=== PATIENT | male | born 1965 | race Caucasian/White ===

== ENCOUNTER 2018-04-16 09:23 | Outpatient (CLI) | payer MEDICARE, SELFPAY ==
[2018-04-16 11:26] LABS: BUN 18 mg/dL (7-18); CREATININE 1.15 mg/dL (0.70-1.30); Calcium 8.9 mg/dL (8.5-10.1); Chloride 101 mmol/L (98-107); Glucose 90 mg/dL (70-100); Potassium 4.7 mmol/L (3.5-5.1); Sodium 136 mmol/L (136-145)
== END 2018-04-16 09:43 ==
PROVIDERS: PCP Family Medicine; Visit Provider Family Medicine
DX: R25.2 Cramp and spasm (principal)
CPT/HCPCS: 36415; 80048

== ENCOUNTER 2019-02-19 15:03 | Outpatient (CLI) | payer MEDICARE, SELFPAY ==
[2019-02-19 15:39] LABS: HCT 40.3 % (40.0-50.0); HGB 13.6 g/dL (13.5-17.5); Mean Corp. HGB Concentration 33.7 g/dL (32.0-36.0); Mean Corpuscular Hemoglobin 22.3 pg (27.0-33.0); Mean Corpuscular Volume 66.1 fL (80-95); Mean Platelet Volume 9.9 fL (8.0-11.0); Platelet Count 347 x1000/uL (130-400); RBC Distribution Width 17.9 % (11.8-14.1); White Blood Cell Count 14.42 k/cumm (4.4-10.8)
[2019-02-19 16:35] LABS: ALT 30 U/L (16-63); AST 10 U/L (15-37); Albumin 3.8 g/dL (3.4-5.0); Alkaline Phosphatase 80 U/L (46-116); Anion Gap 6.3 mmol/L (3-11); BUN 13 mg/dL (7-18); Bilirubin, Total 0.4 mg/dL (0.2-1.0); CO2 29.7 mmol/L (21.0-32.0); CREATININE 1.19 mg/dL (0.70-1.30); Calcium 9.1 mg/dL (8.5-10.1); Chloride 101 mmol/L (98-107); Glucose 108 mg/dL (70-100); Potassium 4.8 mmol/L (3.5-5.1); Sodium 137 mmol/L (136-145); TSH 1.32 uIU/mL (0.36-3.74); Total Protein 7.4 g/dL (6.4-8.2)
== END 2019-02-19 15:23 ==
PROVIDERS: PCP Family Medicine; Visit Provider Family Medicine
DX: M46.1 Sacroiliitis, not elsewhere classified (principal); R41.0 Disorientation, unspecified; F41.9 Anxiety disorder, unspecified
CPT/HCPCS: 36415; 80053; 85027; 84443

== ENCOUNTER 2020-09-05 13:10 | Outpatient (REF) | payer MEDICARE, SELFPAY ==
[2020-09-05 13:58] LABS: Hemoglobin A1C 5.6 % (<5.7)
[2020-09-05 14:08] LABS: CREATININE 1.1 mg/dL (0.70-1.30); Cholesterol 219 mg/dL (<200); HDL Cholesterol 33 mg/dL (40-60); Potassium 4.1 mmol/L (3.5-5.1); Triglyceride 504 mg/dL (<150)
[2020-09-05 14:21] LABS: LDL CHOLESTEROL 104 mg/dL (<100)
== END 2020-09-05 13:11 | disposition home or self-care (01) ==
LOC: LBN 13:10
PROVIDERS: PCP Nurse Practitioner; Visit Provider Nurse Practitioner
DX: I10 Essential (primary) hypertension (principal); R73.03 Prediabetes
CPT/HCPCS: 80061; 83721; 82565; 83036; 84132

== ENCOUNTER → 2020-10-26 10:19 | Outpatient (BNVA) | payer MEDICARE, SELFPAY | PROVIDERS: PCP Nurse Practitioner; Referring Provider Nurse Practitioner; Visit Provider Physical Therapy Assistant | DX: Z12.11 Encounter for screening for malignant neoplasm of colon (principal); I10 Essential (primary) hypertension ==

== ENCOUNTER 2020-10-30 03:07 | Outpatient (CLI) | payer MEDICARE, SELFPAY ==
[2020-10-30 11:39] LABS: Source Nasal/Nares
[2020-10-30 16:43] LABS: COVID-19 PCR Negative (Negative)
== END 2020-10-30 03:08 | disposition home or self-care (01) ==
LOC: LBO 03:07
PROVIDERS: PCP Nurse Practitioner; Visit Provider Surgery
DX: Z20.822 Contact with and (suspected) exposure to COVID-19 (principal); Z01.818 Encounter for other preprocedural examination
CPT/HCPCS: 87635

== ENCOUNTER 2020-11-01 09:06 | Day surgery (SDC) | payer MEDICARE, SELFPAY ==
--- NOTE | 2020-11-01 06:51 | W.COLOREPORT ---
Date of service: 11/01/20 Time of Service: 10:47 Colonoscopy Report Date of procedure: 11/01/20 Pre-op diagnosis general: Colon Cancer Screening Post-op diagnosis procedure note: other (Diverticulosis and polyps) Procedure: Colonoscopy with polypectomy Surgeon: Chiqui Shelley Anesthesia Type: General:No Airway (ASA 2/ Adriana Ford CRNA) Estimated blood loss (mL): 3 Pathology: other (cecal polyp, sigmoid polyps x2, rectal polyp) Complications: None Disposition: same day Indications: The patient is here for Colonoscopy pre-op. He has no family history of colon cancer. He has not had any bowel habit changes. -Discussed colonoscopy bowel prep as well as the procedure. Discussed possible complications of the procedure to include bleeding, pain, perforation, missed small lesion/polyp, sore throat, aspiration and adverse reaction to the medications. Questions were answered to patient?s satisfaction. No guarantees were implied or given.? Prep: Miralax/Dulcolax Procedure Start Time: :47 Procedure End Time: 11:20 Retraction Time: 18 minutes Findings: Alonso-diverticulosis small polyps Procedure Description: After informed consent was obtained the patient was taken to the procedure room and placed in a left decubitous position. Monitors were applied and a time out was done. The patients name, date of , procedure, allergies to medications and metal in their body was reviewed. The patient was then sedated. Once sedated and comfortable a rectal exam was done. External exam was normal. Internal exam revealed a normal sphincter tone and no palpable masses. The prostate felt smooth. The scope was then introduced and retro-flexed. No internal hemorrhoids, polyps or masses were identified on retro-flexion. The scope was then advanced to the cecum without difficulty. The ileocecal vlave and appendiceal orifice were identified. The prep was good. The scope was then slowly retracted over 18 minutes back into the rectum. Polyps were removed with cold forceps in the cecum, sigmoid x2 and rectum. There was alonso-diverticulosis noted. The scope was removed and the patient was woken up and taken back to Same day surgery in stable condition. The patient tolerated the procedure well and there were no immediate complications. Follow up: The patient should follow up in 5 years unless they develop changes in bowel habits or other new gastrointestinal complaints.
--- NOTE | 2020-11-01 06:53 | W.PM.DSUDISC ---
Discharge Plan Disposition Patient Disposition: HOME Condition: Good Discharge Details Reason For Visit: Colonoscopy Attending Provider: Chiqui Shelley Primary Care Provider: Yamilex Maldonado Home Meds and New Rx's Prescriptions: Continued hydrochlorothiazide 25 mg tablet 25 mg PO DAILY Qty: 90 RF: 4 methylphenidate HCl 20 mg tablet 20 mg PO BID MDD 40 mg Qty: 56 RF: 0 lisinopril 30 mg tablet 30 mg PO DAILY Qty: 90 RF: 4 aspirin [Aspir-Low] 81 MG tablet,delayed release (DR/EC) 2 cap PO DAILY Qty: 180 RF: 4 marijuna 0 DAILY RF: 0 paroxetine HCl 20 mg tablet 20 mg PO DAILY Qty: 90 RF: 4 cyclobenzaprine 10 mg tablet 10 mg PO HS PRN (Reason: muscle spasm) Qty: 90 RF: 4 doxazosin 2 mg tablet See Rx Instructions PO HS Qty: 180 RF: 4 ibuprofen 200 mg Tablet RF: 0 Discontinued bisacodyl [Dulcolax (bisacodyl)] 5 mg tablet,delayed release (DR/EC) 5 mg PO ONCE Qty: 4 RF: 0 polyethylene glycol 3350 17 gram/dose powder 17 g PO ONCE Qty: 238 RF: 0 Discharge Instructions Instructions: Diverticulosis (DC), Colorectal Polyps (DC) Additional Instructions: Findings: Diverticulosis small polyps Follow up: 5 years Please call if you develop: fevers >101.5 Nausea or Vomiting Abdominal pain that is not transient Rectal bleeding that is more then a tbsp A hard abdomen and inability to pass gas DAY SURGERY UNIT POST ENDOSCOPY INSTRUCTIONS Instructions for everyone who is given Anesthesia: For your safety, please do the following for the next 24 Hours: a. Do not drive or operate dangerous equipment b. Do not drink alcohol beverages or use any recreational drugs for the first 24 hours or while taking pain medications. The medications in your body may have a reaction that can be dangerous. c. Do not make any important decisions or sign any important papers 1. Generally there are no restrictions on your activity after a day or so has gone by, but you may feel a bit fatigued for a few days. 2. After you arrive home you may have a light meal and return to a normal diet as you can tolerate it without feeling sick to your stomach. 3. After surgery, you may feel pain or discomfort. This should be only transient, but if it persists please contact your doctor. 4. If there are any questions regarding the findings of your procedure, please feel free to contact your doctor. 6. If you are unable to contact your doctor with a problem, contact the hospital at [phone]. 7. Continue all your regular medications unless directed otherwise. I understand the above instructions and have no questions. Signature of Patient or Responsible Adult Escort Date/Time Name of Responsible Adult Escort Signature of Nurse Date/Time Activity:: Activity as Tolerated Diet:: HIgh fiber diet Discharge Orders Discharge Orders: Discharge Order (Routine); Ordered 11/01/20 Ordered By: Chiqui Shelley
[2020-11-01 09:32] VITALS: BP 148/105; PULSE 78; RESP 16; TEMP 36.6; O2SAT 98
--- NOTE | 2020-11-01 09:44 | W.ANESPRE ---
General Info Date of Service Date Performed: 11/01/20 Height: 6 ft 1 in Weight: 84.4 kg Body Mass Index (BMI): 24.5 Surgical Procedure: Operation Date: 11/01/20 10:50 Proposed Procedures Side Surgeon p Colonoscopy Chiqui Shelley MD Meds Allergies and Home Medications Allergies Allergy/AdvReac Type Severity Reaction Status Date / Time gabapentin AdvReac GI UPSET Unverified 11/01/20 09:36 Home Medication Medication Instructions Recorded aspirin [Aspir-Low] 2 cap PO DAILY #180 tab 05/14/17 hydrochlorothiazide 25 mg tablet 25 mg PO DAILY #90 tab-cap 11/24/18 paroxetine HCl 20 mg tablet 20 mg PO DAILY #90 tab-cap 11/03/19 cyclobenzaprine 10 mg tablet 10 mg PO HS PRN #90 tab-cap 01/27/20 doxazosin 2 mg tablet See Rx Instructions PO HS #180 05/08/20 tab-cap lisinopril 30 mg tablet 30 mg PO DAILY #90 tab-cap 06/06/20 methylphenidate HCl 20 mg tablet 20 mg PO BID #56 tab-cap MDD 40 mg 09/05/20 bisacodyl 5 mg tablet,delayed 5 mg PO ONCE #4 tab 10/27/20 release polyethylene glycol 3350 17 17 g PO ONCE #238 g 10/27/20 gram/dose oral powder ibuprofen 11/01/20 Current Visit Medications: Current Medications Generic Name Dose Route Start Last Admin Trade Name Freq PRN Reason Stop Dose Admin Hyoscyamine Sulfate 0.125 mg 11/01/20 06:53 Hyoscyamine 0.125 Mg Sl/Oral/Chew SL DIRECTED PRN Ringer's Solution 1,000 mls @ 80 mls/hr 11/01/20 06:00 IV 11/30/20 23:59 INFUSION BEN IV Miscellaneous Supplies 1 each 11/01/20 06:00 Iv Access IV 11/30/20 23:59 DIRECTED BEN Ondansetron HCl 4 mg 11/01/20 06:53 Ondansetron 4 Mg/2 Ml Vial IVP Q4H PRN PRN Nausea / Vomiting Sodium Chloride 0 ml 11/01/20 06:00 Normal Saline Flush 10 Ml Syr IV 11/30/20 23:59 PRN PRN Sodium Chloride 0 ml 11/01/20 06:00 Normal Saline 10 Ml Vial IJ 11/30/20 23:59 DIRECTED PRN Sterile Water 0 ml 11/01/20 06:00 Water,Injection,Sterile 10 Ml Vial IJ 11/30/20 23:59 DIRECTED PRN PFSH Active Problems Active Problems: Problem Status Onset Code 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 Anxiety 07/16/16 F41.9 BPH w urinary obs/LUTS 10/16/17 N40.1, N13.8 Essential hypertension 04/26/13 I10 Hyperlipidemia E78.5 Raynaud's phenomenon without gangrene 01/16/17 I73.00 Sacroiliitis 04/02/16 M46.1 ADHD F90.9 Hypertriglyceridemia E78.1 Medical History Medical History (Updated 11/01/20 @ 09:44 by Yolanda West) Acute pericarditis (05/15/80) History of high blood pressure Hx of low back pain Surgical History Surgical History (Updated 11/01/20 @ 09:43 by Yolanda West) History of arthroscopy of left shoulder Tobacco Smoking/Tobacco Use Status: Current every day Tobacco Type: cigarettes Alcohol Alcohol Intake: current Alcohol intake frequency: a few times a month Alcohol type: beer Counseling given: Yes Substance Use Substance use: Never Substance use type: marijuana Vital Signs and Lab Results Vital Signs Most Recent Vital Signs in EMR: Most Recent Vital Signs Temp Pulse Resp BP Pulse Ox 36.6 C 78 16 148/105 H 98 11/01/20 09:32 11/01/20 09:32 11/01/20 09:32 11/01/20 09:32 11/01/20 09:32 Lab Results Blood Type / Crossmatch: No Data to Display Complete Blood Count: No Data to Display Complete Metabolic Panel: No Data to Display Liver Function Panel: No Data to Display Coagulation Panel: No Data to Display Cardiac Panel: No Data to Display Arterial Blood Gas: No Data to Display Venous Blood Gas: No Data to Display Pancreas Panel: No Data to Display Thyroid Panel: No Data to Display Infectious Disease: Coronavirus (COVID-19)(PCR) Negative (Negative) 10/30/20 08:38 10/30/20 Coronavirus 2019 Source Nasal/nares 10/30/20 08:38 10/30/20 Blood Cultures: No Data to Display Toxicology Panel: No Data to Display Imaging and Studies Imaging and Studies Stress Test Summary: 07/17/16 Impressions: Normal stress test after maximal exercise. Summary: 1. Stress ECG conclusions: The stress ECG is negative. Sotomayor treadmill score: 11. This score predicts a low risk of cardiac events. 2. Stress: There is a normal resting blood pressure with an appropriate response to stress. The patient experienced no chest pain during stress. Exercise capacity is above normal for age. Echocardiogram Summary: 05/02/16 STUDY CONCLUSIONS* Summary: 1. Left ventricle: The cavity size was normal. Wall thickness was increased in a pattern of mild LVH. There was mild focal basal hypertrophy of the septum. Systolic function was normal. The estimated ejection fraction was 55-60%. Wall motion was normal; there were no regional wall motion abnormalities. 2. Mitral valve: There was mild regurgitation. 3. Right ventricle: The cavity size was at the upper limits of normal. Wall thickness was normal. Systolic function was normal. 4. Atrial septum: There appears to be a small patent foramen ovale. Doppler showed a very small [id number] atrial level shunt, in the baseline state. 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 Anesthesia Assessment and Plan Anesthesia History Personal History: No History of Anesthesia Complications Family History: No Family History of Anesthesia Complications Exercise Tolerance Exercise Tolerance: Metabolic Equivalents>4 Pertinent Negatives Pertinent Negatives: No Symptoms of GERD, No Major Cardiovascular Symptoms or Complaints and No Major Pulmonary Symptoms or Complaints Cardiac & Pulmonary Exam Cardiac Exam: Normal S1/S2 Heart Sounds Pulmonary Exam: Clear Bilateral Breath Sounds Airway Exam Known Difficult Airway: No Mallampati Class: 2 Mouth Opening: Normal (> 3cm) Thyromental Distance: Greater than 3 cm Neck Range of Motion: Full ROM Neck Circumference: Normal Teeth Condition: Normal Dentition ASA Classification ASA Score: ASA 2 Emergency Case?: No NPO Status NPO Status: NPO Clears >2 hours, Solids >8 hours Anesthesia Plan Resuscitation Status: Full Code Anesthesia Technique: General Anesthesia Airway Planned: Natural Airway Monitors Used: Standard Monitors
[2020-11-01] MEDS: Lactated Ringers 1,000 ML 80 ML IV (10:00)
[2020-11-01 10:32] VITALS: BMI 24.5
--- NOTE | 2020-11-01 11:03 | BOWEL_PTH ---
PATIENT: Jong Peña LOC: [facility] U#:[id number] AGE/SX: 55/M ROOM: RE11/01/[address]: Chiqui Shelley MD : 1965 BED: DIS: 11/01/2020 SPEC #: [id number] RECD: 11/01/20 12:49 STATUS: LETTY REQ #: [id number] CATHIE: 11/01/20 11:[address]: Chiqui Shelley DEPT: Surgical Specimen RECD BY: Maria Esther Headley ENTERED: 11/01/20 12:51 SP TYPE: Bowel OTHR DR: Yamilex Maldonado, PhD [employer] Tissues: 1 - BIOPSY BOWEL 2 - BIOPSY BOWEL 3 - BIOPSY BOWEL Procedures: GROSS AND MICRO LEVEL 4 Comments: [id number]
[2020-11-01 11:28] VITALS: BP 130/85; PULSE 77; RESP 16; TEMP 36.2; O2SAT 98
--- NOTE | 2020-11-01 11:36 | W.ANESPOSTOP ---
Postoperative Evaluation Date, Time and Location Date Performed: 11/01/20 Time Performed: 11:36 Patient Location: Day Surgery Unit Vital Signs Most Recent Imported Vital Signs: Most Recent Vital Signs Temp Pulse Resp BP Pulse Ox 36.6 C 78 16 148/105 H 98 11/01/20 09:32 11/01/20 09:32 11/01/20 09:32 11/01/20 09:32 11/01/20 09:32 Most Recent Manually Entered Vital Signs: Adult Blood Pressure: 130/85 Heart Rate: 78 Respirations: 16 Oxygen Saturation (%): 98 Temperature (C): 36.2 C Pain Score (0-10 Scale): 0 Pain Score Most Recent Pain Score: Most Recent Pain Score Pain Level 0 11/01/20 09:32 Assessment Mental Status: Arousable with meaningful communication Airway and Respiratory Function: Patent airway with normal (patient baseline) respiratory exam Cardiovascular Function: Hemodynamically Stable Hydration Status: Adequately Hydrated Nausea & Vomiting: No Nausea or Vomiting Pain: Pt. Denies Any Pain Peripheral Nerve Block: Patient did not receive a nerve block
[2020-11-01 11:37] VITALS: BP 130/85; PULSE 78; RESP 16; TEMPC 36.2; O2SAT 98
[2020-11-01 11:55] VITALS: BP 145/93; PULSE 66; RESP 16; TEMP 35.9; O2SAT 100
== END 2020-11-01 12:35 | disposition home or self-care (01) ==
LOC: SUR 09:06
PROVIDERS: PCP Nurse Practitioner; Visit Provider Surgery
PROC: 0DJD8ZZ Inspection of Lower Intestinal Tract, Via Natural or Artificial Opening Endoscopic (ICD-10-PCS; CPT 45378; principal; 2020-11-01 10:45)
DX: Z12.11 Encounter for screening for malignant neoplasm of colon (principal); D12.0 Benign neoplasm of cecum; K62.1 Rectal polyp; K57.30 Diverticulosis of large intestine without perforation or abscess without bleeding
CPT/HCPCS: 45380; 88305; J2001

== ENCOUNTER 2021-02-22 18:04 | Outpatient (REF) | payer MEDICARE, SELFPAY ==
[2021-02-22 20:50] LABS: CREATININE 1.3 mg/dL (0.70-1.30); Calculated LDL 102 mg/dL (<100); Cholesterol 221 mg/dL (<200); HDL Cholesterol 48 mg/dL (40-60); Triglyceride 358 mg/dL (<150)
== END 2021-02-22 18:05 | disposition home or self-care (01) ==
LOC: NCHCN 18:04
PROVIDERS: PCP Nurse Practitioner; Visit Provider Nurse Practitioner
DX: I10 Essential (primary) hypertension (principal); E78.1 Pure hyperglyceridemia
CPT/HCPCS: 80061; 82565; 84132

== ENCOUNTER 2021-05-18 17:59 | Outpatient (REF) | payer MEDICARE, SELFPAY ==
[2021-05-18 18:37] LABS: *AMPHETAMINES SCREEN URINE Negative (Negative); *BARBITURATES SCREEN URINE Negative (Negative); *BENZODIAZEPINES SCREEN URINE Negative (Negative); Cannabinoids THC Positive (Negative); Cocaine Screen,Urine Negative (Negative); METHADONE URINE SCREEN Negative (Negative); OPIATES URINE SCREEN Negative (Negative)
[2021-05-18 18:38] LABS: Tricyclic Antidepressants Negative (Negative)
== END 2021-05-18 18:00 | disposition home or self-care (01) ==
LOC: LBN 17:59
PROVIDERS: PCP Nurse Practitioner; Visit Provider Nurse Practitioner
DX: Z51.81 Encounter for therapeutic drug level monitoring (principal)
CPT/HCPCS: 80307

== ENCOUNTER 2021-09-13 17:58 | Outpatient (REF) | payer MEDICARE, SELFPAY ==
[2021-09-13 18:27] LABS: *AMPHETAMINES SCREEN URINE Negative (Negative); *BARBITURATES SCREEN URINE Negative (Negative); *BENZODIAZEPINES SCREEN URINE Negative (Negative); Cannabinoids THC Positive (Negative); Cocaine Screen,Urine Negative (Negative); METHADONE URINE SCREEN Negative (Negative); OPIATES URINE SCREEN Negative (Negative)
[2021-09-13 18:30] LABS: Tricyclic Antidepressants Negative (Negative)
== END 2021-09-13 17:59 | disposition home or self-care (01) ==
LOC: LBN 17:58
PROVIDERS: PCP Nurse Practitioner; Visit Provider Nurse Practitioner
DX: Z91.89 Other specified personal risk factors, not elsewhere classified (principal); Z79.899 Other long term (current) drug therapy
CPT/HCPCS: 80307

== ENCOUNTER 2021-12-11 02:09 | Outpatient (CLI) | payer MEDICARE, SELFPAY ==
--- NOTE | 2021-12-11 06:45 | DI.MRI_ITS ---
Exam(s) MR LUMBAR SPINE WO EXAM: MR LUMBAR SPINE WO CLINICAL HISTORY: pain clinic referral, PT with no symptom improvement,sacroilitis,m46.1. TECHNIQUE: Multiplanar multisequence MRI of the Lumbar spine was performed. COMPARISON: MR MRI - LUMBAR SPINE WO CONTRAST from 07/14/2008 CT RENAL COLIC WO CONTRAST from 06/18/2011 CR RT HIP COMPLETE AP PELVIS from 10/11/2016 FINDINGS: Bones: The last intervertebral disc space is designated the L5/S1 level for the numbering purpose of this examination. The vertebral body heights are well maintained. There is partial lumbarization o f S1. Alignment is satisfactory. Mild degenerative endplate signal changes are seen at L3-4, L4-L5 an d L5-S1. Cord: The conus tip ends at the L1 level. It is of normal size and signal intensity. T12-L1: No disc herniations or bulges are present. No central spinal canal or neural foraminal stenos is. L1-2: No disc herniations or bulges are present. No central spinal canal or neural foraminal stenosis . L2-3: No disc herniations or bulges are present. No central spinal canal or neural foraminal stenosis . L3-4: There is a mild diffuse disc bulge. No central spinal canal or neural foraminal stenosis. L4-5: There is a stable mild diffuse disc bulge. Mild degenerative changes of the facets are seen. No significant central spinal canal stenosis is present. There is mild narrowing of the left neural foramen. No significant right neural foraminal stenosis is present. L5-S1: There is a stable diffuse disc bulge which is slightly eccentric to the right. Facet arthropa thy is present. No significant central spinal canal stenosis is present. There is compression of th e right S1 nerve root.No significant neural foraminal stenosis is present. Soft tissues: The visualized SI joints and sacrum are well maintained. There is no change in the aye earance of the lesion in the right iliac bone which correspond to the sclerotic focus seen on the CT scan from 06/18/2011. The paraspinal soft tissues are unremarkable. Visualized abdominal organs: Unremarkable. IMPRESSION: 1. Multilevel degenerative changes in the lumbar spine. 2. Diffuse disc bulge at L5-S1 eccentric to the right causing right lateral recess stenosis and compr essing the right S1 nerve root. DATA REPOSITORY:
== END 2021-12-11 02:29 ==
LOC: DI 02:09
PROVIDERS: PCP Nurse Practitioner; Visit Provider Nurse Practitioner
DX: M46.1 Sacroiliitis, not elsewhere classified (principal); M51.37 Other intervertebral disc degeneration, lumbosacral region; M51.17 Intervertebral disc disorders with radiculopathy, lumbosacral region
CPT/HCPCS: 72148

== ENCOUNTER 2022-01-16 07:54 | Outpatient (CLI) | payer MEDICARE, SELFPAY ==
--- NOTE | 2022-01-16 07:45 | RT.EKG_ITS ---
APPROVED REPORT Exam: Resting ECG Reason for Exam: pre-op examination Patient Location: O HR:78 bpm ECG Measurements Heart Rate 78 AXIS OK 144 P 18 QRSd 99 QRS 21 QT 386 T 34 QTc 440 Conclusion Sinus rhythm...normal P axis, V-rate 60- 99 Normal Electrocardiogram
== END 2022-01-16 07:55 | disposition home or self-care (01) ==
LOC: DI.CM 07:56
PROVIDERS: PCP Nurse Practitioner; Visit Provider Nurse Practitioner Family
DX: Z01.818 Encounter for other preprocedural examination (principal)
CPT/HCPCS: 93010

== ENCOUNTER 2022-01-18 14:56 | Outpatient (CLI) | payer MEDICARE, SELFPAY ==
[2022-01-18 15:09] LABS: HCT 40.6 % (40.0-50.0); HGB 12.9 g/dL (13.5-17.5); MCH 22.2 pg (27.0-33.0); MCHC 31.8 % (32.0-36.0); MCV 70 fL (80-95); MPV 9.3 fL (8.0-11.0); Platelet Count 289 10^3/uL (130-400); RBC 5.82 10^6/uL (4.36-5.78); RDW 14.9 % (11.8-14.1); RDW-SD 36.1 fL; WBC 11.61 10^3/uL (4.4-10.8)
[2022-01-18 15:26] LABS: ALT 35 U/L (16-63); AST 26 U/L (15-37); Albumin 3.5 g/dL (3.4-5.0); Alkaline Phosphatase 118 U/L (46-116); Anion Gap 5.7 mmol/L (3-11); BUN 12 mg/dL (7-18); Bilirubin, Total 0.7 mg/dL (0.2-1.0); CO2 29.3 mmol/L (21.0-32.0); CREATININE 1.2 mg/dL (0.70-1.30); Calcium 9.3 mg/dL (8.5-10.1); Chloride 97 mmol/L (98-107); Glucose 98 mg/dL (74-106); Potassium 4.2 mmol/L (3.5-5.1); Sodium 132 mmol/L (136-145)
== END 2022-01-18 14:57 | disposition home or self-care (01) ==
LOC: LBO 14:57
PROVIDERS: PCP Nurse Practitioner; Visit Provider Nurse Practitioner Family
DX: Z01.818 Encounter for other preprocedural examination (principal)
CPT/HCPCS: 36415; 80053; 85027; 85007

== ENCOUNTER 2022-04-04 04:01 | Outpatient (CLI) | payer MEDICARE, SELFPAY ==
[2022-04-04 12:36] LABS: Abs Immature Grans 0.03 10^3/uL (0.0-0.06); Absolute Basophil Count 0.07 10^3/uL (0.0-0.2); Absolute Eosinophil Count 0.28 10^3/uL (0.0-0.7); Absolute Neutrophil Count 6.11 10^3/uL (1.2-6.7); Basophils % 0.7; Eosinophils % 2.7; HCT 38.4 % (40.0-50.0); HGB 12.1 g/dL (13.5-17.5); Immature Grans % 0.3; Lymphocytes % 25.3; MCHC 31.5 % (32.0-36.0); MCV 73 fL (80-95); MPV 9.9 fL (8.0-11.0); Monocytes % 11.7; Neutrophils % 59.3; Platelet Count 315 10^3/uL (130-400); RBC 5.25 10^6/uL (4.36-5.78); RDW 14.8 % (11.8-14.1); RDW-SD 38.9 fL; WBC 10.29 10^3/uL (4.4-10.8)
[2022-04-04 13:00] LABS: ALT 45 U/L (16-63); AST 25 U/L (15-37); Albumin 3.4 g/dL (3.4-5.0); Alkaline Phosphatase 109 U/L (46-116); Anion Gap 8.6 mmol/L (3-11); BUN 13 mg/dL (7-18); Bilirubin, Total 0.3 mg/dL (0.2-1.0); CO2 28.4 mmol/L (21.0-32.0); CREATININE 1.2 mg/dL (0.70-1.30); Calcium 9.2 mg/dL (8.5-10.1); Chloride 101 mmol/L (98-107); Ferritin 216 ng/mL (26-388); Glucose 102 mg/dL (74-106); Potassium 4.4 mmol/L (3.5-5.1); Sodium 138 mmol/L (136-145); Total Protein 7.6 g/dL (6.4-8.2)
[2022-04-04 14:23] LABS: Iron 20 ug/dL (65-175)
== END 2022-04-04 04:02 | disposition home or self-care (01) ==
LOC: LOS 04:01
PROVIDERS: PCP Nurse Practitioner; Visit Provider Nurse Practitioner Family
DX: D50.9 Iron deficiency anemia, unspecified (principal); F10.21 Alcohol dependence, in remission; D72.829 Elevated white blood cell count, unspecified
CPT/HCPCS: 36415; 80053; 82728; 83540; 85025

== ENCOUNTER 2022-09-29 10:21 | Emergency (ER) | payer MEDICARE, SELFPAY ==
--- NOTE | 2022-09-29 10:15 | RT.EKG_ITS ---
APPROVED REPORT Exam: Resting ECG Reason for Exam: Dizziness Patient Location: E HR:85 bpm ECG Measurements Heart Rate 85 AXIS OK 126 P -16 QRSd 89 QRS 16 QT 364 T [id number] QTc 434 Conclusion Sinus rhythm...normal P axis, V-rate 60- 99 Nonspecific repol abnormality, lateral leads...ST dep, T neg, I aVL V5 V6
[2022-09-29 10:24] VITALS: PULSE 105; RESP 18; TEMP 37.1; O2SAT 99
[2022-09-29 10:25] VITALS: O2SAT 99
[2022-09-29 10:26] VITALS: BP 105/73; PULSE 94
[2022-09-29 10:27] VITALS: BP 105/73
[2022-09-29 10:30] VITALS: RESP 16
--- NOTE | 2022-09-29 10:34 | ED.GENADUL_ITS ---
Discharge Plan Disposition Patient Disposition: Home Discharge Details Clinical Impression: Acute dehydration Primary Care Provider: Brayan Infante ED Provider: Carlos Moe Home Meds and New Rx's Prescriptions: Continued doxazosin 2 mg tablet See Rx Instructions PO HS Qty: 180 4RF Dose Instruction: 1-2 tabs PO HS; Rx Instructions: 1-2 tabs PO HS; cyclobenzaprine 10 mg tablet 10 mg PO HS PRN (Reason: muscle spasm) Qty: 90 4RF Rx Instructions: For muscle spasm hydrochlorothiazide 25 mg tablet 25 mg PO DAILY Qty: 90 3RF Rx Instructions: Replaces 12.5 mg lisinopril 40 mg tablet 40 mg PO DAILY Qty: 90 3RF paroxetine HCl 20 mg tablet 20 mg PO DAILY Qty: 90 4RF aspirin [Aspir-Low] 81 MG tablet,delayed release (DR/EC) 2 cap PO DAILY Qty: 180 4RF marijuna 0 DAILY 0RF naltrexone microspheres 380 mg suspension,extended rel recon 380 mg IM QMONTH Qty: 1 5RF ibuprofen 200 mg Tablet 200 mg PO PRN PRN No Action atorvastatin 40 mg tablet 40 mg PO QPM Qty: 90 3RF Patient Comments: no taking Discharge Instructions Instructions: Dehydration (ED) Additional Instructions: Please continue to orally hydrate and if you develop new or significant worsening of symptoms feel free to return the emergency department for reassessment. Otherwise follow-up with your primary care provider as needed for recheck of any of your abnormal labs. Referrals: Brayan Infante, [employer]AFF [employer] [Primary Care Provider] - Discharge Data Discharge Date/Time-TO BE ENTERED AT DEPARTURE: 09/29/22 13:49 Medical Decision Making Patient presenting to the emergency department for chief complaint of dizziness and fall yesterday evening. 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 Yesterday evening he went to a friend's house and attempted to open the fridge and fell backwards. He had a difficult time getting up. He states some continued dizziness from last night. Denies any head injury, loss of consciousness, nausea vomiting pain or discomfort. Patient's main complaint is some rapid heart rate and mild but continued dizziness in comparison to last night. Physical exam is unremarkable and shows no obvious focal neurological findings, no weakness, beyond tachycardia normal cardiac and respiratory exam. We will plan on checking EKG, and labs. Do feel that we can hold off on any advanced imaging. Of note patient does have a history of alcoholism and while it is stated in remission I question if this may have been a factor to patient's complaint. Reviewed patient's labs and patient does have elevated elevated WBCs with signs of anemia, CMP reviewed and patient has BUN of 26, creatinine of 1.8 with a GFR of 43. Patient's baseline from review of previous ones is greater than 60. Patient does have an elevated bilirubin and a low sodium and chloride with an elevated anion gap. Initial troponin is negative. I suspect significant dehydration given that he was in the sun all day yesterday and reports not hydrating well. We will give him an additional bag of fluids and recheck patient's BMP and CBC after results. Review of repeat CBC shows no significant change. Anemia did slightly increase which was expected but this seems to be near patient's baseline now compared to previous results. CMP shows marked improvement with BUN/creatinine and sodium. Reassessed patient and patient states significant improvement of symptoms. Patient requesting discharge to further hydrate at home which I feel is reasonable. After discussion of diagnosis and plan of care patient has no further needs, questions , or concerns and states clear understanding to return to the emergency department for any worsening symptoms. This documentation was generated using [employer] dictation system, please disregard any oddities of phrase or misspellings. Lab Data Lab results reviewed: Yes I reviewed the patient's lab results. HPI General Mode of arrival: ambulatory . Date/Time Provider Initiated Documentation: 09/29/22 10:22 . Limitations to Documentation: no limitations . Information obtained by: patient and RN notes reviewed . History of Present Illness 57 year old M presents to the emergency department with the chief complaint of Dizziness, syncope, described as moderate, Quality is described as other (Denies pain or discomfort), Patient started experiencing this day(s) (1) and it has been constant. No relieving factors improve symptom(s), Other factors that worsen symptoms (Heat exposure) . Patient notes no other symptoms.. Patient did receive the following treatments prior to arrival, none Related Data Home Medications Medication Instructions Recorded Confirmed aspirin 81 mg tablet,delayed 2 cap PO DAILY #180 tabs 05/14/17 09/29/22 release (Aspir-Low) ibuprofen 200 mg tablet 200 mg PO PRN PRN 11/01/20 09/29/22 doxazosin 2 mg tablet See Rx Instructions PO HS #180 05/18/21 09/29/22 tab-caps atorvastatin 40 mg tablet 40 mg PO QPM #90 tabs 03/27/22 05/02/22 cyclobenzaprine 10 mg tablet 10 mg PO HS PRN muscle spasm #90 03/29/22 09/29/22 tab-caps hydrochlorothiazide 25 mg tablet 25 mg PO DAILY #90 tab-caps 03/29/22 09/29/22 lisinopril 40 mg tablet 40 mg PO DAILY #90 tabs 03/29/22 09/29/22 paroxetine HCl 20 mg tablet 20 mg PO DAILY #90 tab-caps 03/29/22 09/29/22 naltrexone microspheres 380 mg 380 mg IM QMONTH #1 ea 05/02/22 intramuscular suspension,extended release Previous Rx's Medication Instructions Recorded aspirin 81 mg tablet,delayed 2 cap PO DAILY #180 tabs 05/14/17 release (Aspir-Low) doxazosin 2 mg tablet See Rx Instructions PO HS #180 05/18/21 tab-caps atorvastatin 40 mg tablet 40 mg PO QPM #90 tabs 03/27/22 cyclobenzaprine 10 mg tablet 10 mg PO HS PRN muscle spasm #90 03/29/22 tab-caps hydrochlorothiazide 25 mg tablet 25 mg PO DAILY #90 tab-caps 03/29/22 lisinopril 40 mg tablet 40 mg PO DAILY #90 tabs 03/29/22 paroxetine HCl 20 mg tablet 20 mg PO DAILY #90 tab-caps 03/29/22 naltrexone microspheres 380 mg 380 mg IM QMONTH #1 ea 05/02/22 intramuscular suspension,extended release Allergies Allergy/AdvReac Type Severity Reaction Status Date / Time gabapentin AdvReac GI UPSET Unverified 09/29/22 10:28 General Stated Complaint: Dizzy/Sync HERBERT: 3 Review of Systems Constitutional Constitutional: Denies chills, Denies fatigue, Denies fever(s), Denies headache(s), Denies malaise and Denies poor appetite ENT Ears, Nose, Mouth, and Throat: Denies vertigo, Reports dizziness and Denies headache(s) Cardiovascular Cardiovascular: Reports as per HPI, Denies chest pain, Denies chest pain with activity, Reports syncope, Reports rapid heart rate, Denies irregular heart rhythm, Denies palpitations and Denies dyspnea Respiratory Respiratory: Denies cough and Denies dyspnea Gastrointestinal Gastrointestinal: Denies abdominal pain, Denies nausea and Denies vomiting Neurologic Neurologic: Reports as per HPI, Denies confusion, Denies vertigo, Reports dizziness, Reports syncope and Denies headache(s) Psychiatric Psychiatric: Denies anxiety and Denies confusion Endocrine Endocrine: Denies cold intolerance, Denies fatigue, Denies heat intolerance and Denies palpitations PFSH All Active Problems (Updated 09/29/22 @ 13:41 by Carlos Moe NP) Acute dehydration (Acute) Microcytic anemia (Acute) Elevated WBC count (Acute) Hypertension (Chronic) Anxiety (Chronic 07/16/16) 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 Multilevel degenerative changes in the lumbar spine. 2. Diffuse disc bulge at L5-S1 eccentric to the right causing right lateral recess stenosis and compressing the right S1 nerve root. planned laminectomy ADHD (Acute) CONTRACT BREACHED :urine screen neg for med 08/2021; states he took med that morning- recheck in 1 month No show pill count Hypertriglyceridemia (Acute) Medical History Acute pericarditis (05/15/80) Alcoholism in remission (04/02/16) Colon polyp, hyperplastic (~10/2020) Raynaud's phenomenon without gangrene (01/16/17) Tubular adenoma (~10/2020) Surgical History History of arthroscopy of left shoulder History of colonoscopy (~10/2020) Family History Mother No problems noted. Father No problems noted. Sister No problems noted. Brother No problems noted. Grandfather No problems noted. Grandfather No problems noted. Grandmother No problems noted. Grandmother No problems noted. Social History Smoking/Tobacco Use Status: Current-Occasional Tobacco Type: cigars Tobacco: How many years used: 10 Smokeless tobacco user: other (cigar) Quit status: has quit before Second Hand Exposure: Yes Smoking risk assessment performed?: Yes Alcohol Intake: current Alcohol Intake frequency: other Counseling given: Yes Details: patient requesting naltrexone injections Drug use: Occasionally Substance use type: marijuana Details: alcohol:t-2, 3 beers. Marijuana: t-2, hit Caregiver/Support person: No Household members: spouse Housing: house Do you need help understanding health information?: Never Pets and animals: Yes Pets and animals: cat(s) and dog(s) Sexually active: Yes Do you think of yourself as: straight/heterosexual What is your relationship status?: How often do you talk on the phone with friends or family?: three or more times per week How often do you get together with friends or relatives?: three or more times per week How often do you attend druze or temple services?: 4 or more times per year Do you belong to any clubs or organized social groups?: no Panel score (0-1 are the most socially isolated patients): 3 Duration: 15-30 minutes/day Frequency: daily [place]/Jain: Yarsani Seatbelt use: always Helmet use: Yes Helmet use: always Drive intox or ride w/intox limousine driver: No Do you feel safe at home: Yes Do you feel safe in your relationship?: Yes Exam Const General: cooperative, healthy appearing, no acute distress and well groomed Orientation: alert, awake and oriented x3 HENMT Head: normal to inspection Ears: hearing grossly normal bilaterally and TM's normal bilaterally Mouth: oral mucosae normal and moist mucous membranes Throat: posterior oropharynx normal Eyes Visual Adler: normal visual adler by confrontation Alignment and Position: alignment normal Periorbital: periorbital findings normal Eyelids: eyelids normal Sclera: sclerae normal Cornea: corneas normal Pupils: PERRL EOM: EOM intact bilaterally Neck Neck: normal visual inspection, full ROM and no meningeal signs Resp Effort & Inspection: normal respiratory effort and able to speak in complete sentences Auscultation: clear to auscultation bilaterally Cardio Rate: tachycardic Rhythm: regular rhythm Heart Sounds: S1 normal and S2 normal Neuro General: patient alert, patient awake, patient oriented x3, gait normal, tone normal, moves all extremities, CN's II-XI intact bilaterally and not confused Cognition: normal cognition Speech: speech normal Motor: muscle tone normal throughout, strength 5/5 throughout, no pronator drift, no movement abnormalities noted and no fasciculations Sensory Exam: no sensory deficits noted Coordination: [id number] test normal, Romberg test normal, Does not sway with eyes open, rapid alternating movement UE normal and rapid alternating movement LE normal Course Vital Signs Vital signs: Vital Signs Temperature 37.1 C 09/29/22 10:24 Pulse 105 H 09/29/22 10:24 Respiratory Rate 18 09/29/22 10:24 Pulse Oximetry 99 09/29/22 10:24 Temperature 37.1 C 09/29/22 10:24 Temperature Source Temporal Artery Scan 09/29/22 10:24 Pulse 105 H 09/29/22 10:24 Respiratory Rate 18 09/29/22 10:24 Respiratory Effort Normal, Non-Labored 09/29/22 10:26 Blood Pressure 105/73 09/29/22 10:27 Pulse Oximetry 99 09/29/22 10:24 Oxygen Delivery Method Room Air 09/29/22 10:24 Oxygen Flow Rate 0 09/29/22 10:24 PAWSS Have you Been Recently Intoxicated or Drunk Within the Last 30 days?: Yes Have you Ever Experienced Previous Episodes of Alcohol Withdrawal?: No Have you ever Experienced Withdrawal Seizures?: No Have you ever Experienced Delirium Tremens(DT)s?: No Have you ever undergone Alcohol Rehabilitation Treatment (i.e, inpt ot outpatient treatment programs)?: No Have you ever Experienced Blackouts?: No Have you ever Combined Alcohol with other Downers within the last 90 days?: No Have you ever Combined Alcohol with any other Substance of Abuse during the last 90 days?: No Positive Blood Alcohol level on Presentation? [PCS.BAL]: No Evidence of Increased Autonomic Activity (i.e. HR>120, tremor, sweating, agitation, nausea)?: No Result: 1
[2022-09-29] MEDS: Normal Saline 1,000 ML 1000 ML IV ×2 (10:45→11:49)
[2022-09-29 10:52] LABS: Abs Immature Grans 0.03 10^3/uL (0.0-0.06); Absolute Basophil Count 0.06 10^3/uL (0.0-0.2); Absolute Eosinophil Count 0.04 10^3/uL (0.0-0.7); Absolute Lymphocyte Count 2.32 10^3/uL (1.2-3.4); Absolute Monocyte Count 0.87 10^3/uL (0.1-0.8); Absolute Neutrophil Count 9.01 10^3/uL (1.2-6.7); Basophils % 0.5; Eosinophils % 0.3; HCT 40.3 % (40.0-50.0); HGB 13.4 g/dL (13.5-17.5); Immature Grans % 0.2; Lymphocytes % 18.8; MCH 21.8 pg (27.0-33.0); MCHC 33.3 % (32.0-36.0); MCV 66 fL (80-95); MPV 9.2 fL (8.0-11.0); Monocytes % 7.1; Neutrophils % 73.1; Platelet Count 249 10^3/uL (130-400); RBC 6.15 10^6/uL (4.36-5.78); RDW 14.9 % (11.8-14.1); RDW-SD 32.1 fL; WBC 12.32 10^3/uL (4.4-10.8)
[2022-09-29 11:14] LABS: ALT 31 U/L (16-63); AST 18 U/L (15-37); Albumin 3.9 g/dL (3.4-5.0); Alkaline Phosphatase 107 U/L (46-116); BUN 26 mg/dL (7-18); Bilirubin, Total 1.7 mg/dL (0.2-1.0); CREATININE 1.8 mg/dL (0.70-1.30); Chloride 93 mmol/L (98-107); Estimated GFR 43.09 (mL/min/1.73m2); Glucose 113 mg/dL (74-106); Magnesium 2.3 mg/dL (1.8-2.4); Potassium 3.7 mmol/L (3.5-5.1); Sodium 130 mmol/L (136-145); Troponin I < 50 ng/L (<or=60)
[2022-09-29 11:29] LABS: Bilirubin Negative (Negative); Blood Negative (Negative); Clarity Clear (Clear); Glucose Negative (Negative); Ketones Negative (Negative); Leukocyte Esterase Negative (Negative); Nitrite Negative (Negative); pH 6.5 (5-8)
[2022-09-29 11:29] LABS: Anisocytosis 1+; Diff Comment RBC Morph Reviewed; Microcytosis 2+
--- NOTE | 2022-09-29 11:49 | NUR.NOTE ---
pt provided with gingerale and crackers Nursing Note:
[2022-09-29 13:00] VITALS: BP 118/66; PULSE 72; RESP 18; TEMP 37.4; O2SAT 97
[2022-09-29 13:09] LABS: HCT 36.7 % (40.0-50.0); HGB 12.3 g/dL (13.5-17.5); MCH 21.9 pg (27.0-33.0); MCHC 33.5 % (32.0-36.0); MCV 65 fL (80-95); MPV 9.1 fL (8.0-11.0); Platelet Count 220 10^3/uL (130-400); RBC 5.61 10^6/uL (4.36-5.78); RDW 14.3 % (11.8-14.1); RDW-SD 32.2 fL
[2022-09-29 13:18] LABS: Anion Gap 9.8 mmol/L (3-11); BUN 23 mg/dL (7-18); CO2 24.2 mmol/L (21.0-32.0); CREATININE 1.4 mg/dL (0.70-1.30); Calcium 8.7 mg/dL (8.5-10.1); Chloride 100 mmol/L (98-107); Estimated GFR 58.26 (mL/min/1.73m2); Glucose 116 mg/dL (74-106); Potassium 3.6 mmol/L (3.5-5.1); Sodium 134 mmol/L (136-145)
[2022-09-29 13:27] LABS: Troponin I < 50 ng/L (<or=60)
== END 2022-09-29 13:49 | disposition home or self-care (01) ==
PROVIDERS: Emergency Provider Nurse Practitioner Family; PCP Nurse Practitioner Family
DX: E86.0 Dehydration (principal); D72.829 Elevated white blood cell count, unspecified; D64.9 Anemia, unspecified; E80.7 Disorder of bilirubin metabolism, unspecified; E87.1 Hypo-osmolality and hyponatremia; R00.0 Tachycardia, unspecified
CPT/HCPCS: 36415; 80048; 80053; 85027; 93005; 96360; 96361; 99284; 81003; 83735; 84484; 85025; 93010

== ENCOUNTER 2023-01-14 10:01 | Outpatient (REF) | payer MEDICARE, SELFPAY ==
[2023-01-14 14:09] LABS: ALT 26 U/L (16-63); AST 17 U/L (15-37); Albumin 3.7 g/dL (3.4-5.0); Alkaline Phosphatase 109 U/L (46-116); Anion Gap 7.2 mmol/L (3-11); BUN 17 mg/dL (7-18); Bilirubin, Total 0.3 mg/dL (0.2-1.0); CO2 27.8 mmol/L (21.0-32.0); CREATININE 1.1 mg/dL (0.70-1.30); Calcium 9.3 mg/dL (8.5-10.1); Chloride 100 mmol/L (98-107); Cholesterol 209 mg/dL (<200); Estimated GFR 77.81 (mL/min/1.73m2); Glucose 130 mg/dL (74-106); HDL Cholesterol 29 mg/dL (40-60); Potassium 4.2 mmol/L (3.5-5.1); Sodium 135 mmol/L (136-145); Total Protein 7.2 g/dL (6.4-8.2); Triglyceride 522 mg/dL (<150)
[2023-01-14 14:24] LABS: LDL CHOLESTEROL 104 mg/dL (<100)
[2023-01-15 11:47] LABS: Hepatitis C Ab w Rflx HCV PCR Negative (Negative)
[2023-01-15 12:18] LABS: HIV-1/2 Ag & Ab Screen Negative (Negative)
== END 2023-01-14 10:02 | disposition home or self-care (01) ==
LOC: LBN 10:01
PROVIDERS: PCP Nurse Practitioner Family; Visit Provider Nurse Practitioner Family
DX: I10 Essential (primary) hypertension (principal); E78.5 Hyperlipidemia, unspecified; Z11.4 Encounter for screening for human immunodeficiency virus [HIV]; Z11.59 Encounter for screening for other viral diseases; Z00.00 Encounter for general adult medical examination without abnormal findings
CPT/HCPCS: 80053; 80061; 83721; 86803; 87389

== ENCOUNTER 2024-04-26 17:35 | Outpatient (REF) | payer MEDICARE, SELFPAY ==
--- NOTE | 2024-04-26 11:42 | SKI_PTH ---
PATIENT: Jong Peña LOC: [facility] #:[id number] AGE/SX: 59/M ROOM: RE04/26/[address]: Remi Peraza MD : 1965 BED: DIS: 04/26/2024 SPEC #: [id number] RECD: 04/26/24 17:38 STATUS: LETTY REQ #: [id number] CATHIE: 04/26/24 11:[address]: Remi Peraza DEPT: Surgical Specimen RECD BY: Maria Esther Headley ENTERED: 04/26/24 17:39 SP TYPE: KEITH KHAN DR: Brayan Flanagan, BRENNON Tissues: 1 - SKIN BIOPSY(SHAVE/PUNCH) Procedures: SKIN LEVEL 4 Comments: [id number]
== END 2024-04-26 17:36 | disposition home or self-care (01) ==
LOC: LBN 17:35
PROVIDERS: PCP Nurse Practitioner Family; Referring Provider Nurse Practitioner Family; Visit Provider Otolaryngology
DX: L98.9 Disorder of the skin and subcutaneous tissue, unspecified (principal); C44.91 Basal cell carcinoma of skin, unspecified
CPT/HCPCS: 88305

== ENCOUNTER → 2024-06-02 08:47 | Outpatient (BNVA) | payer MEDICARE, SELFPAY | PROVIDERS: PCP Nurse Practitioner Family; Referring Provider Nurse Practitioner Family; Visit Provider Podiatrist | DX: L84 Corns and callosities (principal); M67.01 Short Achilles tendon (acquired), right ankle; M67.02 Short Achilles tendon (acquired), left ankle; M77.42 Metatarsalgia, left foot | CPT/HCPCS: 11305; 99214 ==

== ENCOUNTER → 2024-07-14 09:14 | Outpatient (BNVA) | payer MEDICARE, SELFPAY | PROVIDERS: PCP Nurse Practitioner Family; Referring Provider Nurse Practitioner Family; Visit Provider Podiatrist | DX: L84 Corns and callosities (principal); I87.2 Venous insufficiency (chronic) (peripheral); M67.01 Short Achilles tendon (acquired), right ankle; M67.02 Short Achilles tendon (acquired), left ankle; M77.42 Metatarsalgia, left foot | CPT/HCPCS: 17110 ==

== ENCOUNTER 2024-10-04 03:25 | Outpatient (CLI) | payer MEDICARE, SELFPAY ==
[2024-10-04 12:23] LABS: Hemoglobin A1C 5.6 % (<5.7)
[2024-10-04 12:40] LABS: ALT 23 U/L (16-63); AST 10 U/L (15-37); Albumin 3.6 g/dL (3.4-5.0); Alkaline Phosphatase 83 U/L (46-116); Anion Gap 5.1 mmol/L (3-11); BUN 17 mg/dL (7-18); Bilirubin, Total 0.3 mg/dL (0.2-1.0); CO2 30.9 mmol/L (21.0-32.0); CREATININE 1.3 mg/dL (0.70-1.30); Calcium 9.5 mg/dL (8.5-10.1); Chloride 103 mmol/L (98-107); Cholesterol 195 mg/dL (<200); Estimated GFR 62.89 (mL/min/1.73m2); Glucose 93 mg/dL (74-106); HDL Cholesterol 34 mg/dL (>or=40); Potassium 4.4 mmol/L (3.5-5.1); Sodium 139 mmol/L (136-145); Total Protein 7.4 g/dL (6.4-8.2); Triglyceride 458 mg/dL (<150)
[2024-10-04 12:51] LABS: LDL CHOLESTEROL 89 mg/dL (<100)
== END 2024-10-04 03:26 | disposition home or self-care (01) ==
LOC: LOS 03:26
PROVIDERS: PCP Nurse Practitioner Family; Visit Provider Nurse Practitioner Family
DX: E78.5 Hyperlipidemia, unspecified (principal); R73.9 Hyperglycemia, unspecified
CPT/HCPCS: 36415; 80053; 80061; 83721; 83036